=== PATIENT | male | born 1970 | race Caucasian/White ===

== ENCOUNTER 2022-03-12 10:56 | Emergency (ER) | payer SELFPAY ==
[~2022-03-12] VITALS: Ht 182.9 cm; Wt 150.0 kg
[2022-03-12] VITALS (11 sets, daily range): BP systolic 94–150; BP diastolic 59–97
[2022-03-12 12:17] LABS: BASO% 0.2 % (0-3); EOS% 2.3 % (0-8); HEMATOCRIT 45.3 % (39.0-50.0); HEMOGLOBIN 15.3 g/dl (14.0-18.0); IMMATURE GRANULOCYTES 0.5 % (0.0-5.0); MEAN CELL VOLUME 91.9 fL CALC (80.0-100.0); MEAN CORPUSCULAR HGB CONC 33.8 g/dL CAL (32.0-36.0); MONO% 7.7 % (2-13); NEUT# 5.72 thou/uL (1.82-7.42); NEUT% 66.3 % (42-76); RED BLOOD COUNT 4.93 mill/uL (4.70-6.10); RED CELL DISTRI WIDTH 14.2 % (11.5-15.5)
[2022-03-12 12:32] LABS: ALBUMIN 4.5 g/dL (3.2-5.0); ALKALINE PHOSPHATASE 169 u/l (38-126); ANION GAP 10 (6-22 (CALC)); BILIRUBIN, TOTAL 0.3 mg/dL (0.0-1.4); BUN 13 mg/dL (9-20); BUN/CREATININE RATIO 13 (12-20 (CALC)); CARBON DIOXIDE 29 mmol/l (22-30); CHLORIDE 102 mmol/l (95-108); GFR FOR AFR.AMER. > 60 ML/MIN (>=60 (CALC)); GFR OTHER RACES > 60 ML/MIN (>=60 (CALC)); POTASSIUM 3.6 mmol/l (3.5-5.1); SGOT/AST 32 u/l (17-59); SODIUM 138 mmol/l (137-146)
[2022-03-12 13:19] LABS: URINE BILIRUBIN - DIPSTICK NEGATIVE (NEGATIVE); URINE BLOOD DIPSTICK NEGATIVE (NEGATIVE); URINE COLOR YELLOW; URINE GLUCOSE - DIPSTICK NEGATIVE (NEGATIVE); URINE KETONE NEGATIVE (NEGATIVE); URINE LEUK ESTERASE NEGATIVE (NEGATIVE); URINE PROTEIN - DIPSTICK NEGATIVE (NEG-TRACE); URINE UROBILINOGEN - DIPSTICK 0.2 E.U./dL (0.2)
[2022-03-12 13:20] LABS: URINE NITRITE - DIPSTICK NEGATIVE (Negative)
[2022-03-12] MEDS ORDERED: MECLIZINE 2525 MG PO (13:59)
== END 2022-03-12 14:36 | disposition home or self-care (01) | DRG 948 ==
LOC: ED 10:56
PROVIDERS: Family Medicine
DX: R53.83 Other fatigue (principal)

== ENCOUNTER 2022-11-07 10:11 | Observation (INO) | payer SELFPAY ==
[~2022-11-07] VITALS: Ht 182.9 cm; Wt 160.6 kg
[2022-11-07] VITALS (36 sets, daily range): BP systolic 68–145; BP diastolic 45–84
[~2022-11-07 10:11] MED LIST: MECLIZINE 2525 MG PO
--- NOTE | 2022-11-07 10:29 | NUR ---
TO ROOM 8 VIA WC IN STABLE CONDITION.
--- NOTE | 2022-11-07 11:30 | NUR ---
PATIENT SITTING UP IN BED. VSS. CALL LIGHT NEAR PATIENT. NO NEEDS AT THIS TIME.
[2022-11-07 12:03] LABS: BASO% 0.3 % (0-3); EOS% 0.6 % (0-8); HEMATOCRIT 44.2 % (39.0-50.0); HEMOGLOBIN 14.6 g/dl (14.0-18.0); IMMATURE GRANULOCYTES 0.3 % (0.0-5.0); LYMPH% 19.8 % (15-41); MEAN CELL VOLUME 89.5 fL CALC (80.0-100.0); MEAN CORPUSCULAR HGB 29.6 pG CALC (26.0-32.0); MONO% 5.4 % (2-13); NEUT# 10.33 thou/uL (1.82-7.42); NEUT% 73.6 % (42-76); RED BLOOD COUNT 4.94 mill/uL (4.70-6.10); RED CELL DISTRI WIDTH 13.6 % (11.5-15.5)
[2022-11-07 12:05] LABS: URINE BILIRUBIN - DIPSTICK Negative (NEGATIVE); URINE BLOOD DIPSTICK Negative (NEGATIVE); URINE GLUCOSE - DIPSTICK Negative (NEGATIVE); URINE KETONE Negative (NEGATIVE); URINE LEUK ESTERASE Negative (NEGATIVE); URINE NITRITE - DIPSTICK Negative (Negative); URINE PH 7.5 (4.5-8.0); URINE PROTEIN - DIPSTICK Negative (NEG-TRACE); URINE SPECIFIC GRAVITY 1.015; URINE UROBILINOGEN - DIPSTICK 0.2 E.U./dL (0.2)
[2022-11-07 12:07] LABS: URINE COLOR Yellow
[2022-11-07 12:17] LABS: ALBUMIN 4.4 g/dL (3.2-5.0); ALKALINE PHOSPHATASE 165 u/l (38-126); BUN 13 mg/dL (9-20); BUN/CREATININE RATIO 11 (12-20 (CALC)); CHLORIDE 105 mmol/l (95-108); CREATININE 1.1 mg/dL (0.7-1.3); GFR FOR AFR.AMER. > 60 ML/MIN (>=60 (CALC)); GFR OTHER RACES > 60 ML/MIN (>=60 (CALC)); POTASSIUM 3.9 mmol/l (3.5-5.1); SGOT/AST 46 u/l (17-59); SODIUM 139 mmol/l (137-146); TOTAL PROTEIN 8.4 g/dL (6.3-8.2)
[2022-11-07 12:18] LABS: ANION GAP 15 (6-22 (CALC)); BILIRUBIN, TOTAL 0.6 mg/dL (0.2-1.3); CARBON DIOXIDE 23 mmol/l (22-30)
--- NOTE | 2022-11-07 12:25 | NUR ---
IV STARTED ON PATIENT. PATIENT TOLERATED. VSS. CALL LIGHT NEAR PATIENT.
--- NOTE | 2022-11-07 13:30 | NUR ---
PATINENT LAYING IN BED, VSS, CALL LIGHT NEAR PATIENT.
--- NOTE | 2022-11-07 14:27 | NUR ---
PATIENT IS LAYING BACK IN BED STATES HE IS OK BUT STILL HAS A LITTLE SOB. ASKED IF HE WOULD BE COMFORTABLE TO SIT UP. PATIENT PERFERS TO LAY BACK. VSS. CALL LIGHT IN HAND.
--- NOTE | 2022-11-07 15:18 | NUR ---
PATIENT MADE AWARE FORM MD THAT HE WILL BE ADMITTED TO [facility]. NO FURTHER QUESTIONS BY PATIENT AT THIS TIME. VSS. CALL LIGHT WITH IN REACH.
--- NOTE | 2022-11-07 16:28 | NUR ---
PATIENT RESTING COMFORTABLE. NO NEEDS AT THIS TIME. VSS. CALL LIGHT WITH IN REACH.
--- NOTE | 2022-11-07 17:18 | NUR ---
PATIENT SITTING UP IN BED. VSS. NO NEEDS AT THIS TIME. CALL LIGHT WITH IN REACH
--- NOTE | 2022-11-07 18:03 | NUR ---
PROVIDED PATIENT WITH DINNER TRAY.
--- NOTE | 2022-11-07 19:00 | NUR ---
REPORT RECEIVED FROM EMELY POWER AND CARE RESUMED BY THIS NURSE. PT IS AN ADMISSION HOLD HERE IN THE ER. CALL LIGHT WITHIN REACH.
--- NOTE | 2022-11-07 20:14 | NUR ---
ATTEMPTED TO GIVE REPORT TO [facility] AT THIS TIME BUT THERE WAS NO ANSWER. PT AWAITING TRANSFER TO THE FLOOR FOR ADMISSION. CALL LIGHT WITHIN REACH. PT HAS NO NEEDS OR CONCERNS.
--- NOTE | 2022-11-07 20:40 | NUR ---
REPORT GIVEN TO DOMINGO RN AT THIS TIME AND PT TO BE TRANSPORTED TO [facility] SHORTLY. CALL LIGHT WITHIN REACH.
--- NOTE | 2022-11-07 20:45 | NUR ---
Admission Note Report Given to: DOMINGO Transported by: X Wheelchair Stretcher Transported with: X Nurse Transporter X Patent IV O2 X Semiautomatic Taper Operator Location: ICU X MS2
--- NOTE | 2022-11-07 22:55 | NUR ---
pt received from er via wc at 20:55. alert and oriented x 3. no sob. ambulated to stand up scale without difficulty. weight is 144.4 kgs. IV SALINE LOCK patent left ac. safety precations maintained. call light in reach
[2022-11-08 00:29] VITALS: BP 117/61
[2022-11-08 04:45] VITALS: BP 112/65
[2022-11-08 06:40] LABS: HEMATOCRIT 41.7 % (39.0-50.0); HEMOGLOBIN 13.5 g/dl (14.0-18.0); MEAN CORPUSCULAR HGB 29.5 pG CALC (26.0-32.0); MEAN CORPUSCULAR HGB CONC 32.4 g/dL CAL (32.0-36.0); RED BLOOD COUNT 4.58 mill/uL (4.70-6.10); RED CELL DISTRI WIDTH 13.5 % (11.5-15.5)
--- NOTE | 2022-11-08 06:40 | NUR ---
PT SLEPT WELL. VOIDED SEVERAL TIMES IN THE BATHROOM. IV FLUIDS INFUSING ORDERED. VSS.
[2022-11-08 06:51] LABS: BUN 11 mg/dL (9-20); BUN/CREATININE RATIO 13 (12-20 (CALC)); C-REACTIVE PROTEIN 3.4 mg/dL (0-0.9); CALCULATED LDLCHOLESTEROL 177 mg/dL (62-129 (CALC)); CHLORIDE 107 mmol/l (95-108); CHOLESTEROL HDL RATIO 6.1 (<4.4 (CALC)); CREATININE 0.9 mg/dL (0.7-1.3); GFR FOR AFR.AMER. > 60 ML/MIN (>=60 (CALC)); GFR OTHER RACES > 60 ML/MIN (>=60 (CALC)); HDL CHOLESTEROL 40 mg/dL (39.0-59.0); SODIUM 136 mmol/l (137-146); TOTAL CHOLESTEROL 247 mg/dl (0-199); TOTAL TRIGLYCERIDES 150 mg/dl (0-149); VLDL CHOLESTROL 30 mg/dl (8-62 (CALC))
[2022-11-08 06:53] LABS: ANION GAP 16 (6-22 (CALC)); CARBON DIOXIDE 18 mmol/l (22-30); POTASSIUM 5.2 mmol/l (3.5-5.1)
--- NOTE | 2022-11-08 07:05 | NUR ---
REPORT RECEIVED FROM JANNET LANE
[2022-11-08 07:39] VITALS: BP 119/57
--- NOTE | 2022-11-08 09:06 | NUR ---
LAB AT BEDSIDE
--- NOTE | 2022-11-08 09:10 | NUR ---
PT RESTING IN SEMI FOWLERS POSITION,A&O X3 WITH FAMILY AT BEDSIDE;ASSESSMENT COMPLETED;PT DENIES ANY CURRENT PAIN OR DISCOMFORTS,PAIN SCALE AND REPORTING EDUCATED;RESPIRATIONS EVEN AND UNLABORED ON RA;ABDOMEN SOFT ON PALPATION AND ACTIVE IN ALL 4 QUADRANTS;STRONG PEDAL PULSES;SKIN INTACT;TELE MONITORING IN PLACE;#20G TO RAC INFUSING NS @ 100ML/HR,SITE APPEARS HEALTHY;PT DENIES ANY ADDITIONAL NEEDS AND IS ENCOURAGED TO CALL FOR ASSISTANCE IF NEEDED;FALL PRECAUTIONS IN PLACE WITH BED IN THE LOWEST POSITION AND CALL LIGHT IN REACH;FREQUENT ROUNDS MADE.
--- NOTE | 2022-11-08 09:15 | NUR ---
AT BEDSIDE DISCUSSING POC.
--- NOTE | 2022-11-08 09:42 | NUR ---
CALL RECEIVED FROM LAB REPORTING LACTIC ACID RESULT OF 3.1. NOTIFIED AT THIS TIME, NO NEW ORDERS RECEIVED.
--- NOTE | 2022-11-08 10:34 | NUR ---
RT AT BEDSIDE ADMINISTERING BREATHING TX.
[2022-11-08 10:54] VITALS: BP 128/63
--- NOTE | 2022-11-08 11:23 | NUR ---
RT AT BEDSIDE PERFORMING 6 MIN WALK TEST WITH PT.
--- NOTE | 2022-11-08 12:05 | NUR ---
PT RESTING IN SEMI FOWLERS POSITION;RESPIRATIONS EVEN AND UNLABORED ON RA;PT DENIES ANY CURRENT PAIN OR DISCOMFORTS;IV SITE REMAINS PATENT INFUSING NS @ 100ML/HR;TELE MONITORING IN PLACE;PT ENCOURAGED TO CALL FOR ASSISTANCE IF NEEDED;CALL LIGHT IN REACH;FREQUENT ROUNDS MADE.
--- NOTE | 2022-11-08 12:11 | NUR ---
LAB AT BEDSIDE
--- NOTE | 2022-11-08 12:23 | NUR ---
RT AT BEDSIDEE OBTAINING ABG.
--- NOTE | 2022-11-08 13:10 | NUR ---
PT TRANSPORTED TO ULTRASOUND VIA WC ACCOMPANIED BY VOLUNTEER AT THIS TIME.
--- NOTE | 2022-11-08 15:18 | NUR ---
RT AT BEDSIDE ADMINISTERING BREATHING TX.
--- NOTE | 2022-11-08 15:30 | NUR ---
LAB AT BEDSIDE
--- NOTE | 2022-11-08 15:40 | NUR ---
PT RESTING IN SEMI FOWLERS POSITION WITH FAMILY AT BEDSIDE;RESPIRATIONS EVEN AND UNLABORED ON RA;PT DENIES ANY CURRENT PAIN OR DISCOMFORTS;TELE MONITORING IN PLACE;#20G TO RAC INFUSING NS @ 100ML/HR,SITE APPEARS HEALTHY BUT IS POSITIONAL;X2 ATTEMPTS AT NEW SITE UNSUCCESSFUL;ABX STARTED AT THIS TIME;PT DENIES ANY ADDITIONAL NEEDS AND IS ENCOURAGED TO CALL FOR ASSISTANCE IF NEEDED;CALL LIGHT IN REACH;FREQUENT ROUNDS MADE.
[2022-11-08 16:06] VITALS: BP 133/61
[2022-11-08 19:12] VITALS: BP 133/62
--- NOTE | 2022-11-08 20:00 | NUR ---
RECEIVED BEDSIDE REPORT FROM DAYSHIFT NURSE. PT IS MADE AWARE OF CHANGE OF NURSE FOR THE NIGHT. PT HAS NO COMPLAINTS AT THIS TIME. SAFETY PRECAUTIONS IN PLACE AND CALL LIGHT WITHIN REACH.
--- NOTE | 2022-11-09 | NUR ---
PT IS SLEEPING IN BED WITH NO SIGNS OF PAIN OR DISCOMFORT. SAFETY PRECAUTIONS IN PLACE AND CALL LIGHT WITHIN REACH.
[2022-11-09 00:30] VITALS: BP 130/70
[2022-11-09 03:33] VITALS: BP 123/60
--- NOTE | 2022-11-09 04:00 | NUR ---
PT IS SLEEPING SOUNDLY IN BED. PT HAS NO SIGNS OF PAIN OR DISCOMFORT AT THIS MOMENT. SAFETY PRECAUTIONS IN PLACE AND CALL LIGHT WITHIN REACH.
[2022-11-09 05:25] LABS: BASO% 0.1 % (0-3); HEMATOCRIT 39.6 % (39.0-50.0); HEMOGLOBIN 12.7 g/dl (14.0-18.0); IMMATURE GRANULOCYTES 0.5 % (0.0-5.0); MEAN CELL VOLUME 91.9 fL CALC (80.0-100.0); MEAN CORPUSCULAR HGB 29.5 pG CALC (26.0-32.0); MEAN CORPUSCULAR HGB CONC 32.1 g/dL CAL (32.0-36.0); MONO% 2.6 % (2-13); NEUT# 12.47 thou/uL (1.82-7.42); NEUT% 88.8 % (42-76); RED BLOOD COUNT 4.31 mill/uL (4.70-6.10); RED CELL DISTRI WIDTH 14.1 % (11.5-15.5)
[2022-11-09 05:40] LABS: ALBUMIN 3.8 g/dL (3.2-5.0); ALKALINE PHOSPHATASE 118 u/l (38-126); ANION GAP 13 (6-22 (CALC)); BILIRUBIN, TOTAL 0.4 mg/dL (0.2-1.3); BUN 13 mg/dL (9-20); BUN/CREATININE RATIO 14 (12-20 (CALC)); CHLORIDE 108 mmol/l (95-108); CREATININE 0.9 mg/dL (0.7-1.3); GFR FOR AFR.AMER. > 60 ML/MIN (>=60 (CALC)); GFR OTHER RACES > 60 ML/MIN (>=60 (CALC)); MAGNESIUM 2.2 mg/dL (1.6-2.3); POTASSIUM 4.7 mmol/l (3.5-5.1); SGOT/AST 37 u/l (17-59); SODIUM 138 mmol/l (137-146); TOTAL PROTEIN 7.4 g/dL (6.3-8.2)
[2022-11-09 05:42] LABS: CARBON DIOXIDE 22 mmol/l (22-30)
[2022-11-09 06:40] VITALS: BP 124/60
--- NOTE | 2022-11-09 08:18 | NUR ---
PATIENT AT SIDE OF BED. STILL HAVING A MILD COUGH NON PRODUCTIVE. PATIENT STATES FEELING BETTER. MD ROUNDED WITH PATIENT POSSIBLE DISCHARGE LATER TODAY. PATIENT ON RA LUNGS CLEAR BUT DIMINISHED. PLAN OF CARE ONGOING.
[2022-11-09] MEDS ORDERED: AMOX/K CLAV875 M1 PO (09:11)
[2022-11-09] MEDS ORDERED: AZITHROMYCIN500 MG PO (09:12)
[2022-11-09] MEDS ORDERED: PREDNISONE20 MG PO (09:15)
[2022-11-09 11:27] VITALS: BP 129/62
[2022-11-09] MEDS ORDERED: VENTOLIN HFA108 MCG IN (11:35)
--- NOTE | 2022-11-09 12:00 | NUR ---
DM EDUCATION PROVIDED AND EXPLAINED.
--- NOTE | 2022-11-09 12:15 | NUR ---
Discharge instructions given. Patient verbalizes understanding of same. Discharged in stable condition via Wheelchair to Home. All belongings sent with pt.
== END 2022-11-09 12:09 | disposition home or self-care (01) | DRG 190 ==
LOC: ED 10:11 → ED-I 14:36 → ED 14:48 → ED-I 14:49 → MS2 20:42
PROVIDERS: Family Medicine; ADMIT Student in an Organized Health Care Education/Training Program; ATTEND Student in an Organized Health Care Education/Training Program
DX: J44.1 Chronic obstructive pulmonary disease with (acute) exacerbation (principal); J18.9 Pneumonia, unspecified organism; Z68.41 Body mass index [BMI] 40.0-44.9, adult; E87.20 Acidosis, unspecified; E11.9 Type 2 diabetes mellitus without complications; J44.0 Chronic obstructive pulmonary disease with (acute) lower respiratory infection; M79.89 Other specified soft tissue disorders; E66.9 Obesity, unspecified; Z87.891 Personal history of nicotine dependence; Z86.16 Personal history of COVID-19; Z83.3 Family history of diabetes mellitus; Z20.822 Contact with and (suspected) exposure to COVID-19
CPT/HCPCS: G0378; J1650; Q9967

== ENCOUNTER 2024-03-22 11:12 | Emergency (ER) | payer SELFPAY ==
[~2024-03-22] VITALS: Ht 182.9 cm; Wt 136.0 kg
[2024-03-22] VITALS (7 sets, daily range): BP systolic 101–113; BP diastolic 49–56
[~2024-03-22 11:12] MED LIST changes: +AMOX/K CLAV875 M1 PO; +AZITHROMYCIN500 MG PO; +PREDNISONE20 MG PO; +VENTOLIN HFA108 MCG IN
[2024-03-22 11:39] LABS: BASO% 0.2 % (0-3); EOS% 0.2 % (0-8); HEMATOCRIT 44.3 % (39.0-50.0); HEMOGLOBIN 14.3 g/dl (14.0-18.0); IMMATURE GRANULOCYTES 0.2 % (0.0-5.0); LYMPH% 13.1 % (15-41); MEAN CELL VOLUME 86.7 fL CALC (80.0-100.0); MEAN CORPUSCULAR HGB CONC 32.3 g/dL CAL (32.0-36.0); MONO% 4.6 % (2-13); NEUT# 9.92 thou/uL (1.82-7.42); NEUT% 81.7 % (42-76); RED BLOOD COUNT 5.11 mill/uL (4.70-6.10); RED CELL DISTRI WIDTH 14.3 % (11.5-15.5)
[2024-03-22 11:58] LABS: ALBUMIN 4.4 g/dL (3.2-5.0); ANION GAP 18 (6-22 (CALC)); BILIRUBIN, TOTAL 0.5 mg/dL (0.2-1.3); BUN 11 mg/dL (9-20); BUN/CREATININE RATIO 12 (12-20 (CALC)); CARBON DIOXIDE 21 mmol/l (22-30); CHLORIDE 102 mmol/l (95-108); CREATININE 0.9 mg/dL (0.7-1.3); ESTIMATED GFR 101 ML/MIN (>=90 (CALC)); ETHYL ALCOHOL 0 mg/dl (0-30); POTASSIUM 3.9 mmol/l (3.5-5.1); SGOT/AST 48 u/l (17-59); SODIUM 137 mmol/l (137-146); TOTAL PROTEIN 7.8 g/dL (6.3-8.2)
[2024-03-22 11:59] LABS: ALKALINE PHOSPHATASE 264 u/l (38-126); URINE BILIRUBIN - DIPSTICK Negative (NEGATIVE); URINE BLOOD DIPSTICK Negative (NEGATIVE); URINE GLUCOSE - DIPSTICK Negative (NEGATIVE); URINE KETONE Trace mg/dL (NEGATIVE); URINE LEUK ESTERASE Negative (NEGATIVE); URINE NITRITE - DIPSTICK Negative (Negative); URINE PH 5.5 (4.5-8.0); URINE PROTEIN - DIPSTICK 100 mg/dL (NEG-TRACE); URINE UROBILINOGEN - DIPSTICK 0.2 E.U./dL (0.2)
[2024-03-22 12:00] LABS: URINE COLOR Yellow; URINE EPITHELIAL CELLS FEW EPI/hpf (0-FEW); URINE MUCUS MODERATE hpf (NONE-FEW)
[2024-03-22] MEDS ORDERED: hydrOXYzine HCL 25 MG/TAB PO ONE (12:30)
== END 2024-03-22 16:24 | DRG 880 ==
LOC: ED 11:12
PROVIDERS: Family Medicine
DX: R45.851 Suicidal ideations (principal); F32.A Depression, unspecified